=== PATIENT | male | born 1945 | race Caucasian/White ===

== ENCOUNTER 2017-06-07 16:35 | Emergency (ER) | payer OTHER, BC ==
[2017-06-07 16:46] VITALS: BP 134/78; PULSE 72; TEMP 97.6; BMI 24.6
--- NOTE | 2017-06-07 16:47 | PDOC ---
Rapid Medical Evaluation Time Seen by Provider: 06/07/17 16:41 Medical Evaluation: Allergies Allergy/AdvReac Type Severity Reaction Status Date / Time No Known Allergies Allergy Verified 02/25/15 08:00 06/07/17 16:41 The patient presents with a chief complaint of: constipation for 5 days. He has had this in the past and was in ER fo4r this but "along time ago". He did not take any OTC, no fiber increase, no narcotic use, no dehydration. He was nervous when he was driving to his pharmacy and came to the ER instead for relief of his constipation and belly pain. He feels full, bloated. Had a " very small bit" but not enough according to pt. I have performed a brief in-person evaluation of this patient; Pertinent physical exam findings: ambulatory, in no respiratory distress I have ordered the following: AXR to rule out obstruction, miralax, ducolax, enema for home plan. The patient will proceed to the ED for further evaluation.
--- NOTE | 2017-06-07 19:24 | PDOC ---
History of Present Illness - General Chief Complaint: Constipation Stated Complaint: FATIGUE Time Seen by Provider: 06/07/17 16:41 History Source: Patient - History of Present Illness Initial Comments: 06/07/17 20:00 72 year old male with reports hard BM now unable to pass stool x 5 days, today with small amount of liquid BM. unable to pass flatus since arrival . Denies urinary symtpoms. + generalized abdominal discomfort. denies fever/ chills , nausea, vomiting, Past History - Past Medical History Allergies/Adverse Reactions: Allergies Allergy/AdvReac Type Severity Reaction Status Date / Time No Known Allergies Allergy Verified 06/07/17 16:46 Home Medications: Ambulatory Orders Amlodipine Besylate 5 mg PO DAILY 02/24/15 Losartan Potassium 50 mg PO DAILY 02/24/15 Tamsulosin HCl 0.4 mg PO HS 02/24/15 Magnesium Citrate [Citroma -] 300 ml PO ONCE #1 bottle 06/07/17 Polyethylene Glycol 3350 [Miralax (For Daily Use) -] 17 gm PO BID #1 bottle COPD: No HTN: Yes - Immunization History Immunization Up to Date: Yes - Suicide/Smoking/Psychosocial Hx Smoking History: Never smoked Hx Alcohol Use: No Drug/Substance Use Hx: No Substance Use Type: None Review of Systems - Review of Systems Able to Perform ROS?: Yes Is the patient limited [place] proficient: No Constitutional: No: Symptoms Reported, See HPI, Chills, Diaphoresis, Fever, Loss of Appetite, Malaise, Night Sweats, Weakness, Weight Stable, Unintentional Wgt. Loss, Unexplained wgt Loss, Other ABD/GI: Yes: Constipated. No: Symptoms Reported, See HPI, Abdominal Distended, Abd. Pain w/ defecation, Blood Streaked Bowels, Diarrhea, Difficulty Swallowing , Nausea, Poor Appetite, Poor Fluid Intake, Rectal Bleeding, Vomiting, Indigestion, Abdominal cramping, Tarry Stools, Other : No: Symptoms Reported, See HPI, Burning, Dysuria, Discharge, Frequency, Flank Pain, Hematuria, Incontinence, Pain, Urgency, Testicular Mass, Testicular Swelling, Lesions, Testicular Pain, Other Musculoskeletal: No: Symptoms Reported, See HPI, Back Pain, Gout, Joint Pain, Joint Swelling, Muscle Pain, Muscle Weakness, Neck Pain, Joint Stiffness, Other Integumentary: No: Symptoms Reported, See HPI, Bruising, Change in Color, Change in Hair/Nails, Dryness, Erythema, Flushing, Lesions, Lumps, Pallor, Pruritus, Rash, Sweating, Other *Physical Exam - Vital Signs Last Vital Signs Temp Pulse Resp BP Pulse Ox 97.6 F 72 18 134/78 97 06/07/17 16:41 06/07/17 16:41 06/07/17 16:41 06/07/17 16:41 06/07/17 16:41 - Physical Exam General Appearance: Yes: Appropriately Dressed Respiratory/Chest: positive: Lungs Clear, Normal Breath Sounds Cardiovascular: positive: Regular Rhythm, Regular Rate Progress Note - Progress Note Progress Note: A: constipation P: fleet enema soap edmar enema xray: + stool burden. Medical Decision Making - Medical Decision Making 06/07/17 22:46 small amount of bowel movement after 50% of soap edmar enema. rectal exam hard stool in rectal cavity. manual disimpaction done. patient now had + large BM and reports symptom relief. will d/c home with miralax. *DC/Admit/Observation/Transfer Diagnosis at time of Disposition: Constipation Qualifiers: Constipation type: unspecified constipation type Qualified Code(s): K59.00 - Constipation, unspecified - Discharge Dispostion Disposition: HOME - Prescriptions Prescriptions: Magnesium Citrate [Citroma -] 300 ml PO ONCE #1 bottle Polyethylene Glycol 3350 [Miralax (For Daily Use) -] 17 gm PO BID #1 bottle - Referrals Referrals: Galo Cox MD [Primary Care Provider] - Call tomorrow - Patient Instructions Printed Discharge Instructions: Constipation Additional Instructions: drink plenty of fluids. start a high fiber diet. follow up with your doctor as soon as possible take miralax as prescribed. - Post Discharge Activity
[2017-06-07 20:56] LABS: URINE APPEARANCE CLEAR; URINE BILIRUBIN NEGATIVE (NEGATIVE); URINE BLOOD NEGATIVE (NEGATIVE); URINE COLOR YELLOW; URINE GLUCOSE (UA) NEGATIVE (NEGATIVE); URINE KETONE NEGATIVE (NEGATIVE); URINE LEUK ESTERASE NEGATIVE (NEGATIVE); URINE NITRITE NEGATIVE (NEGATIVE); URINE PROTEIN NEGATIVE (NEGATIVE); URINE UROBILINOGEN NEGATIVE mg/dL (0.2-1.0)
== END 2017-06-07 23:00 | disposition home or self-care (01) ==
LOC: JER 16:35 → JERFT 16:35 → JER 23:00
DX: K59.00 Constipation, unspecified (principal); I10 Essential (primary) hypertension
CPT/HCPCS: 74018-TC-FY; 81003; 99282-25

== ENCOUNTER 2020-11-20 04:20 | Day surgery (SDC) | payer OTHER, BC ==
[2020-11-19 15:49] VITALS: BMI 24.3
[~2020-11-20 04:20] MED LIST: BUPIVACAINE HCL/PF 0.5% (5MG/ML) 10 ML VIAL IJ ONE; IOHEXOL 180 MG/1 ML ML IJ ONE; LIDOCAINE HCL 1% PRESERVATIVE FREE - 30ML VIAL IJ ONE
[2020-11-20 12:00] VITALS: BP 163/80; PULSE 60; TEMP 98.5
== END 2020-11-20 12:03 | disposition home or self-care (01) ==
LOC: JASU-SURG 04:20
PROVIDERS: ATTEND Pain Medicine Pain Medicine
PROC: BR14YZZ Fluoroscopy of Cervical Facet Joint(s) using Other Contrast (ICD-10-PCS; 2020-11-20)
PROC: 3E0T3BZ Introduction of Anesthetic Agent into Peripheral Nerves and Plexi, Percutaneous Approach (ICD-10-PCS; principal; 2020-11-20 10:15)
DX: M47.812 Spondylosis without myelopathy or radiculopathy, cervical region (principal)
CPT/HCPCS: 76000-TC-FY

== ENCOUNTER 2021-01-01 04:30 | Day surgery (SDC) | payer OTHER, BC ==
[2020-12-30 16:33] VITALS: BMI 24.4
[2021-01-01] MEDS ORDERED: BUPIVACAINE HCL/PF 0.25% (2.5MG/ML) 10 ML VIAL ONE (07:05)
[2021-01-01] MEDS ORDERED: BUPIVACAINE HCL/PF 0.5% (5MG/ML) 10 ML VIAL ONE (07:05)
[2021-01-01] MEDS ORDERED: LIDOCAINE HCL/PF 1% SDV 5ML VIAL ONE (07:05)
[2021-01-01] MEDS ORDERED: BUPIVACAINE HCL/PF 0.75% 10 ML VIAL ONE (07:05)
[2021-01-01] MEDS ORDERED: TRIAMCINOLONE ACET 40MG/1ML VIAL ONE (07:05)
[2021-01-01] MEDS ORDERED: SODIUM CHLORIDE 0.9% P/F 10 ML VIAL IJ ONE (07:17)
[2021-01-01] MEDS ORDERED: LIDOCAINE HCL/PF 2% SDV 5ML VIAL ONE (07:17)
[2021-01-01] MEDS ORDERED: DEXAMETHASONE SOD PHOSPHATE 10 MG/1 ML VIAL IVPUSH ONE (08:35)
[2021-01-01] MEDS ORDERED: LIDOCAINE HCL 1% PRESERVATIVE FREE - 30ML VIAL IJ ONE (08:35)
[2021-01-01] MEDS ORDERED: IOHEXOL 180 MG/1 ML ML IJ ONE (08:35)
[2021-01-01 09:18] VITALS: TEMP 98.5
[2021-01-01 11:19] VITALS: BP 150/78; PULSE 54
== END 2021-01-01 09:35 | disposition home or self-care (01) ==
LOC: JASU-SURG 04:30
PROVIDERS: ATTEND Pain Medicine Pain Medicine
PROC: B01BYZZ Fluoroscopy of Spinal Cord using Other Contrast (ICD-10-PCS; 2021-01-01)
PROC: 3E0R33Z Introduction of Anti-inflammatory into Spinal Canal, Percutaneous Approach (ICD-10-PCS; principal; 2021-01-01 08:15)
DX: M54.12 Radiculopathy, cervical region (principal); I10 Essential (primary) hypertension
CPT/HCPCS: J1100

== ENCOUNTER 2021-05-12 12:13 | Inpatient (IN) | payer OTHER, BC ==
[2021-05-12 13:18] LABS: BASO % 1.5 % (0-2.0); HEMATOCRIT 36.3 % (35.4-49); HEMOGLOBIN 12.7 GM/dL (11.7-16.9); LYMPH % 29.3 % (8-40); MCH 31.7 pg (25.7-33.7); MCHC 34.8 g/dl (32.0-35.9); MEAN CELL VOLUME 90.9 fl (80-96); MEAN PLT VOLUME 6.5 fl (7.5-11.1); MONO % 9.2 % (3.8-10.2); PLATELET COUNT 220 10^3/uL (134-434); WHITE BLOOD COUNT 4.9 K/mm3 (4.0-10.0)
[2021-05-12 14:42] LABS: ALBUMIN 3.9 g/dl (3.4-5.0); BLOOD UREA NITROGEN 11.5 mg/dL (7-18); CALCIUM 8.5 mg/dL (8.5-10.1)
[2021-05-12 14:45] LABS: CREATININE 0.6 mg/dL (0.55-1.3); PHOSPHOROUS 3.5 mg/dL (2.5-4.9)
[2021-05-12 14:46] LABS: TOT PROT 6.3 g/dl (6.4-8.2)
[2021-05-12 14:47] LABS: BILIRUBIN,TOTAL 0.5 mg/dL (0.2-1)
[2021-05-12] MEDS ORDERED: ACETAMINOPHEN 325 MG TABLET (FP) PO PRN (23:16)
[2021-05-12] MEDS ORDERED: SODIUM CHLORIDE 1,000 ML IV SCH (23:30)
[2021-05-13 02:46] VITALS: BMI 22.3
[2021-05-13] MEDS ORDERED: MELATONIN 5 MG TABLETS PO PRN (03:26)
[2021-05-13 08:08] LABS: BASO % 0.7 % (0-2.0); EOS % 2.6 % (0-4.5); HEMATOCRIT 34.1 % (35.4-49); HEMOGLOBIN 11.9 GM/dL (11.7-16.9); LYMPH % 38.9 % (8-40); MCH 31.5 pg (25.7-33.7); MCHC 34.9 g/dl (32.0-35.9); MEAN CELL VOLUME 90.4 fl (80-96); MEAN PLT VOLUME 6.7 fl (7.5-11.1); MONO % 11.4 % (3.8-10.2); NEUT % 46.4 % (42.8-82.8); PLATELET COUNT 208 10^3/uL (134-434); RBC 3.78 M/mm3 (4.00-5.60); RDW 12.9 % (11.9-15.9); WHITE BLOOD COUNT 4.8 K/mm3 (4.0-10.0)
[2021-05-13 08:23] LABS: ALBUMIN 3.7 g/dl (3.4-5.0); MAGNESIUM 1.9 mg/dL (1.8-2.4)
[2021-05-13 08:24] LABS: CALCIUM 9.1 mg/dL (8.5-10.1)
[2021-05-13 08:25] LABS: BLOOD UREA NITROGEN 12.2 mg/dL (7-18)
[2021-05-13 08:26] LABS: CREATININE 0.9 mg/dL (0.55-1.3)
[2021-05-13 08:28] LABS: PHOSPHOROUS 3.7 mg/dL (2.5-4.9); TOT PROT 5.7 g/dl (6.4-8.2)
[2021-05-13 08:29] LABS: BILIRUBIN,TOTAL 0.7 mg/dL (0.2-1)
[2021-05-13] MEDS ORDERED: LABETALOL HCL 100 MG TABLET (FP) PO SCH (10:00)
[2021-05-13] MEDS ORDERED: LOSARTAN POTASSIUM 50 MG TABLET PO SCH (10:00)
[2021-05-13] MEDS ORDERED: ENOXAPARIN NA (PORCINE) 40 MG/0.4 ML DISP.SYRIN SQ SCH (10:00)
[2021-05-13] MEDS ORDERED: PRIMIDONE 50 MG TABLET PO SCH (10:00)
[2021-05-13 15:27] VITALS: BP 124/67; PULSE 64; TEMP 98.6
== END 2021-05-13 17:41 | disposition home or self-care (01) | DRG 309 ==
LOC: JER 12:13 → JERBED 16:07 → OBSVTOIN 16:07 → J4W 05-13 03:43
PROVIDERS: ADMIT Internal Medicine
DX: R00.2 Palpitations (principal); E87.1 Hypo-osmolality and hyponatremia; R51.9 Headache, unspecified; I10 Essential (primary) hypertension; E78.5 Hyperlipidemia, unspecified; M54.12 Radiculopathy, cervical region
CPT/HCPCS: 36415; 70450-TC; 71045-TC-FY; 80053; 80061; 82570; 83735; 83935; 84100; 84300; 84443; 84484; 84540; 85025; 85379; 93005; 93010; 93306-TC; 99285-25; C9803; U0003; U0005

== ENCOUNTER 2022-02-28 04:06 | Day surgery (SDC) | payer OTHER, BC ==
[2022-02-25 10:32] VITALS: BMI 23.0
[2022-02-28] MEDS ORDERED: PROPOFOL 20 ML ONE (09:47)
[2022-02-28] MEDS ORDERED: MIDAZOLAM HCL 2 MG/2 ML SINGLE DOSE VIAL ONE (09:54)
[2022-02-28] MEDS ORDERED: FENTANYL CITRATE/PF 50 MCG/ML VIAL ONE (09:54)
[2022-02-28] MEDS ORDERED: ceFAZolin SODIUM 1 GM VIAL ONE (10:39)
[2022-02-28] MEDS ORDERED: ceFAZolin SODIUM 1 GM VIAL IVPB ONE (10:40)
[2022-02-28] MEDS ORDERED: LIDOCAINE HCL 1%, 10 MG/ML (20ML VIAL) NR ONE ×2 (10:50)
[2022-02-28] MEDS ORDERED: BUPIVACAINE HCL/PF 0.5% (5 MG/ML) 30 ML VIAL IJ ONE ×2 (10:50)
[2022-02-28] MEDS ORDERED: oxyCODONE HCL 5 MG TABLET PO PRN (11:25)
[2022-02-28] MEDS ORDERED: PROMETHAZINE HCL 25 MG/1 ML VIAL IVPUSH PRN (11:25)
[2022-02-28] MEDS ORDERED: ONDANSETRON 4 MG/2 ML VIAL IVPUSH PRN (11:25)
[2022-02-28] MEDS ORDERED: ACETAMINOPHEN 1000 MG/100 ML BAG IVPB PRN (11:26)
[2022-02-28] MEDS ORDERED: LACTATED RINGERS SOLUTION 1,000 ML IV SCH (11:30)
[2022-02-28 12:44] VITALS: RESP 18
[2022-02-28 13:28] VITALS: BP 154/79; PULSE 54; TEMP 97.8
== END 2022-02-28 13:00 | disposition home or self-care (01) ==
LOC: JASU-SURG 04:06
PROVIDERS: ATTEND Orthopaedic Surgery
PROC: 0RBP0ZZ Excision of Left Wrist Joint, Open Approach (ICD-10-PCS; principal; 2022-02-28 10:00)
DX: M67.432 Ganglion, left wrist (principal)
CPT/HCPCS: 88305-TC; 94760

== ENCOUNTER 2023-03-07 11:00 | Emergency (ER) | payer OTHER, BC ==
[2023-03-07 11:07] VITALS: BP 157/66; PULSE 69; RESP 18; TEMP 97.6; BMI 21.1
[2023-03-07] MEDS ORDERED: ACETAMINOPHEN 325 MG TABLET (FP) PO ONE (12:18)
[2023-03-07] MEDS ORDERED: LIDOCAINE 4% PATCH TP ONE ×2 (12:18→12:33)
[2023-03-07] MEDS ORDERED: predniSONE 20 MG TABLET (UD) PO ONE (12:18)
[2023-03-07] MEDS ORDERED: ACETAMINOPHEN 325 MG TABLET (FP) ONE (12:29)
[2023-03-07] MEDS ORDERED: predniSONE 20 MG TABLET (UD) ONE (12:29)
[2023-03-07] MEDS ORDERED: LIDOCAINE PATCH REMOVAL MC SCH (22:00)
== END 2023-03-07 13:08 | disposition home or self-care (01) ==
LOC: JERFT 11:00
DX: M54.6 Pain in thoracic spine (principal); M54.2 Cervicalgia; G89.29 Other chronic pain
CPT/HCPCS: 99283-25